=== PATIENT | female | born 1965 | race Caucasian/White ===

== ENCOUNTER 2016-08-04 09:26 | Emergency (ER) | payer OTHER ==
[~2016-08-04] VITALS: Ht 154.9 cm; Wt 103.0 kg
[~2016-08-04 09:26] MED LIST: ADVAIR HFA120 INHALA IH; AMLODIPINE BESY10 MG PO; ASPIR 8181 M1 PO; ATENOLOL; AZITHROMYCIN250 MG PO; BENZONATATE100 MG PO; HCTZ; HYDROCHLOROTHIA25 MG PO; HYDROCODON-ACE1 EAC7 PO; METRONIDAZOLE500 MG PO; NICODERM CQ1 EAC2 TD; NICOTINE PATCH1 EAC2 TD; OXYCODONE HCL5 MG PO; PERCOCET 5/31 TABLET PO; PREDNISONE10 MG PO; PREDNISONE20 MG PO; PROAIR HFA8.5 GM IH; PROVENTIL HFA6.7 GM IH; SPIRIVA RESPIMAT4 GM IH; TESSALON PERLE100 MG PO; ZITHROMAX Z-PA250 MG PO; ZITHROMAX250 MG PO; ZOFRAN4 MG PO; [UNRECOGNIZED DRUG - OTHER] PO
[2016-08-04 09:45] VITALS: BP 112/85
[2016-08-04] MEDS ORDERED: PROVENTIL HFA6.7 GM IH (11:39)
[2016-08-04] MEDS ORDERED: PREDNISONE20 MG PO (11:39)
[2016-08-04] MEDS ORDERED: TESSALON200 MG PO (11:51)
== END 2016-08-04 12:12 | disposition home or self-care (01) ==
LOC: EME 09:26
DX: J44.1 Chronic obstructive pulmonary disease with (acute) exacerbation (principal); F17.200 Nicotine dependence, unspecified, uncomplicated; Z79.82 Long term (current) use of aspirin
CPT/HCPCS: 71020; 94640; 94640 76; 99281; 99283; J7512

== ENCOUNTER 2016-08-27 15:26 | Observation (INO) | payer OTHER ==
[~2016-08-27] VITALS: Ht 154.9 cm; Wt 106.5 kg
[~2016-08-27 15:26] MED LIST changes: +TESSALON200 MG PO
[2016-08-27 15:50] LABS: HEMATOCRIT 43.4 % (36.0-46.0); MCH 26.6 PG (29.0-34.0); MCHC 33.2 G/DL (30.0-36.0); MCV 80.2 FL (83-99); MEAN PLAT.VOLUME 9.6 uM^3 (9.5-12.4); PLATELET COUNT 362 K/uL (156-360); RBC DIS.WIDTH-CV 15.5 % (11.8-14.6); RBC DIS.WIDTH-SD 45.4 % (39-53); RED BLOOD COUNT 5.41 M/uL (3.80-5.20); WHITE BLOOD COUNT 13.8 K/uL (4.1-10.2)
[2016-08-27 15:58] LABS: CHLORIDE 108 mEq/L (99-109); POTASSIUM 3.8 mEq/L (3.7-5.4); SODIUM 141 mEq/L (136-147)
[2016-08-27 16:00] LABS: GLUCOSE 103 mg/dL (70-99)
[2016-08-27 16:02] LABS: ANION GAP 11 MEQ/L (2-14); TOTAL BILIRUBIN 0.2 mg/dL (0.0-1.0)
[2016-08-27 16:04] LABS: ALKALINE PHOSPHATASE 90 IU/L (3-129); GFR ESTIMATE (CALCULATED) > 59 mL/min/
[2016-08-27 16:07] LABS: LIPASE 119 U/L (1.0-51.0); UREA NITROGEN (BUN) 14 mg/dL (9-23)
[2016-08-27 16:09] LABS: BASOPHIL COUNT 0.1 K/uL (0-0.1); EOSINOPHIL (%) 1.7 % (0-5); EOSINOPHIL COUNT 0.2 K/uL (0-0.3); IMMATURE GRANULOCYTE (%) 0.2 % (0.0-0.7); IMMATURE GRANULOCYTE COUNT 0.3 K/uL; LYMPHOCYTE COUNT 3.5 K/uL (1.0-2.8); MONOCYTE (%) 6.2 % (3-12); MONOCYTE COUNT 0.9 K/uL (0-0.8); NEUTROPHIL (%) 66.6 % (45-76); NEUTROPHIL COUNT 9.3 K/uL (1.8-6.4)
[2016-08-27 16:13] LABS: QUANTITATIVE HCG 4.4 MIU/ML
[2016-08-27 18:27] LABS: ADD MIUA? YES; BILIRUBIN NEGATIVE; BLOOD MODERATE; COLOR YELLOW ((YELLOW)); GLUCOSE (STRIP) NEGATIVE; KETONES NEGATIVE; LEUKOCYTES NEGATIVE; NITRITE NEGATIVE; PROTEIN (STRIP) 30; UROBILINOGEN 0.2 MG/DL (0.2-1.0)
[2016-08-27 18:42] LABS: BACTERIA NONE SEEN /HPF; EPITHELIAL CELLS RARE /HPF; MUCUS TRACE /LPF; UCUL ADDED? NO; WHITE BLOOD CELLS 0-5 /HPF (0-5)
[2016-08-27 19:03] LABS: SPECIFIC GRAVITY 1.094 (1.000-1.030)
[2016-08-27] MEDS ORDERED: SPIRIVA RESPIMAT4 GM IH (19:28)
[2016-08-27] MEDS ORDERED: AMLODIPINE BESY10 MG PO (19:29)
[2016-08-27] MEDS ORDERED: PROAIR HFA8.5 GM IH (19:29)
[2016-08-27] MEDS ORDERED: ADVAIR 250/501 DISK IH (19:30)
[2016-08-27] MEDS ORDERED: LISINOPRIL10 MG PO (19:33)
[2016-08-27 22:38] VITALS: BP 104/54
[2016-08-28 04:19] VITALS: BP 125/71
[2016-08-28 07:18] LABS: EOSINOPHIL (%) 2.3 % (0-5); EOSINOPHIL COUNT 0.2 K/uL (0-0.3); HEMATOCRIT 37.7 % (36.0-46.0); IMMATURE GRANULOCYTE (%) 0.3 % (0.0-0.7); LYMPHOCYTE COUNT 2.1 K/uL (1.0-2.8); MCH 26.6 PG (29.0-34.0); MCHC 31.6 G/DL (30.0-36.0); MEAN PLAT.VOLUME 10.2 uM^3 (9.5-12.4); MONOCYTE (%) 6.3 % (3-12); MONOCYTE COUNT 0.6 K/uL (0-0.8); NEUTROPHIL (%) 69.4 % (45-76); NEUTROPHIL COUNT 6.7 K/uL (1.8-6.4); PLATELET COUNT 283 K/uL (156-360); RBC DIS.WIDTH-CV 15.7 % (11.8-14.6); RBC DIS.WIDTH-SD 48.2 % (39-53); RED BLOOD COUNT 4.48 M/uL (3.80-5.20)
[2016-08-28 07:20] LABS: MCV 84.2 FL (83-99); WHITE BLOOD COUNT 9.6 K/uL (4.1-10.2)
[2016-08-28 07:34] LABS: ALKALINE PHOSPHATASE 59 IU/L (3-129); ANION GAP 7 MEQ/L (2-14); CHLORIDE 112 MEQ/L (99-109); GFR ESTIMATE (CALCULATED) > 59 mL/min/; GLUCOSE 90 mg/dL (70-99); POTASSIUM 3.9 MEQ/L (3.7-5.4); SAMPLE HEMOLYSIS CHECK 0; SAMPLE ICTERIC CHECK 0; SAMPLE LIPEMIA CHECK 0; SODIUM 143 MEQ/L (136-147); TOTAL BILIRUBIN 0.3 MG/DL (0.0-1.0); UREA NITROGEN (BUN) 16 mg/dL (9-23)
[2016-08-28 08:45] VITALS: BP 115/67
[2016-08-28] MEDS ORDERED: PROMETHAZINE HC25 M1 PO (09:20)
[2016-08-28 09:30] VITALS: BP 135/90
== END 2016-08-28 11:06 | disposition home or self-care (01) ==
LOC: EME 15:26 → EXP 15:26 → EDOF 21:03 → 5WEST 22:18
PROVIDERS: Hospitalist
DX: K85.90 Acute pancreatitis without necrosis or infection, unspecified (principal); R10.13 Epigastric pain; K80.20 Calculus of gallbladder without cholecystitis without obstruction; D72.829 Elevated white blood cell count, unspecified; R31.9 Hematuria, unspecified; J44.9 Chronic obstructive pulmonary disease, unspecified; I10 Essential (primary) hypertension; E66.9 Obesity, unspecified; Z68.41 Body mass index [BMI] 40.0-44.9, adult; F17.200 Nicotine dependence, unspecified, uncomplicated; Z82.49 Family history of ischemic heart disease and other diseases of the circulatory system
CPT/HCPCS: 74177; 76705; 80053; 81003; 83690; 84702; 85025; 85027; 93005; 94640; 99202; 99281; 99285; G0378; J1170; J1644; J1885; J2405; J3010; J7030; J7120; S0028

== ENCOUNTER 2016-10-15 22:17 | Emergency (ER) | payer OTHER ==
[~2016-10-15] VITALS: Ht 154.9 cm; Wt 105.4 kg
[~2016-10-15 22:17] MED LIST changes: +ADVAIR 250/501 DISK IH; +LISINOPRIL10 MG PO; +PROMETHAZINE HC25 M1 PO
[2016-10-16 01:08] LABS: ADD MIUA? YES; BILIRUBIN NEGATIVE; BLOOD MODERATE; COLOR YELLOW ((YELLOW)); GLUCOSE (STRIP) NEGATIVE; KETONES NEGATIVE; LEUKOCYTES NEGATIVE; NITRITE NEGATIVE; PROTEIN (STRIP) 30; SPECIFIC GRAVITY 1.016 (1.000-1.030); UROBILINOGEN 0.2 MG/DL (0.2-1.0)
[2016-10-16 01:25] LABS: HEMATOCRIT 41.3 % (36.0-46.0); MCH 25.9 PG (29.0-34.0); MCHC 31.5 G/DL (30.0-36.0); MCV 82.3 FL (83-99); MEAN PLAT.VOLUME 9.9 uM^3 (9.5-12.4); PLATELET COUNT 337 K/uL (156-360); RBC DIS.WIDTH-CV 14.7 % (11.8-14.6); RBC DIS.WIDTH-SD 43.9 % (39-53); RED BLOOD COUNT 5.02 M/uL (3.80-5.20); WHITE BLOOD COUNT 10.5 K/uL (4.1-10.2)
[2016-10-16 01:39] LABS: CHLORIDE 109 mEq/L (99-109); POTASSIUM 3.9 mEq/L (3.7-5.4); SODIUM 142 mEq/L (136-147)
[2016-10-16 01:40] LABS: GLUCOSE 105 mg/dL (70-99)
[2016-10-16 01:42] LABS: ANION GAP 10 MEQ/L (2-14)
[2016-10-16 01:44] LABS: GFR ESTIMATE (CALCULATED) > 59 mL/min/
[2016-10-16 01:45] LABS: UREA NITROGEN (BUN) 16 mg/dL (9-23)
[2016-10-16 01:58] LABS: BACTERIA NONE SEEN /HPF; EPITHELIAL CELLS 1+ /HPF; MUCUS NONE SEEN /LPF; RED BLOOD CELLS 0-5 /HPF (0-5); UCUL ADDED? NO
[2016-10-16] MEDS ORDERED: TORADOL10 MG PO (02:41)
[2016-10-16] MEDS ORDERED: SKELAXIN800 MG PO (02:41)
[2016-10-16 02:47] VITALS: BP 152/88
== END 2016-10-16 02:48 | disposition home or self-care (01) ==
LOC: EME 22:17
PROVIDERS: Physician Assistant
DX: M54.5 Low back pain (principal); I10 Essential (primary) hypertension; J44.9 Chronic obstructive pulmonary disease, unspecified; Z79.82 Long term (current) use of aspirin; F17.200 Nicotine dependence, unspecified, uncomplicated
CPT/HCPCS: 74176; 80048; 81003; 85027; 99281; 99284; J1885

== ENCOUNTER 2016-12-06 18:50 | Emergency (ER) | payer OTHER ==
[~2016-12-06] VITALS: Ht 154.9 cm; Wt 105.9 kg
[~2016-12-06 18:50] MED LIST changes: +SKELAXIN800 MG PO; +TORADOL10 MG PO
[2016-12-06] MEDS ORDERED: KEFLEX500 MG PO (20:56)
[2016-12-06 21:06] VITALS: BP 165/92
== END 2016-12-06 21:07 | disposition home or self-care (01) ==
LOC: EME 18:50
DX: L03.116 Cellulitis of left lower limb (principal); M54.5 Low back pain; I10 Essential (primary) hypertension; J44.9 Chronic obstructive pulmonary disease, unspecified; F17.200 Nicotine dependence, unspecified, uncomplicated
CPT/HCPCS: 73630; 99281; 99283; J1885

== ENCOUNTER 2016-12-07 18:47 | Emergency (ER) | payer OTHER ==
[~2016-12-07] VITALS: Ht 154.9 cm; Wt 104.4 kg
[~2016-12-07 18:47] MED LIST changes: +KEFLEX500 MG PO
[2016-12-07 20:01] LABS: HEMATOCRIT 45.9 % (36.0-46.0); MCH 26.1 PG (29.0-34.0); MCHC 31.8 G/DL (30.0-36.0); MCV 82.1 FL (83-99); MEAN PLAT.VOLUME 10.1 uM^3 (9.5-12.4); PLATELET COUNT 340 K/uL (156-360); RBC DIS.WIDTH-CV 15.1 % (11.8-14.6); RBC DIS.WIDTH-SD 45.1 % (39-53); RED BLOOD COUNT 5.59 M/uL (3.80-5.20); WHITE BLOOD COUNT 11.8 K/uL (4.1-10.2)
[2016-12-07 20:13] LABS: CHLORIDE 108 mEq/L (99-109); SODIUM 142 mEq/L (136-147)
[2016-12-07 20:15] LABS: GLUCOSE 103 mg/dL (70-99)
[2016-12-07 20:17] LABS: ANION GAP 9 MEQ/L (2-14)
[2016-12-07 20:19] LABS: GFR ESTIMATE (CALCULATED) > 59 mL/min/
[2016-12-07 20:20] LABS: UREA NITROGEN (BUN) 14 mg/dL (9-23)
[2016-12-07 23:25] VITALS: BP 117/78
== END 2016-12-07 23:28 | disposition home or self-care (01) ==
LOC: EME 18:47
PROVIDERS: Physician Assistant
DX: L03.116 Cellulitis of left lower limb (principal); M79.89 Other specified soft tissue disorders; J44.9 Chronic obstructive pulmonary disease, unspecified; I10 Essential (primary) hypertension; F17.200 Nicotine dependence, unspecified, uncomplicated
CPT/HCPCS: 80048; 83605; 85027; 87040; 93971; 99281; 99284